=== PATIENT | female | born 1945 | race Caucasian/White ===

== ENCOUNTER 2019-04-18 00:49 | Emergency (ER) | payer BC, MEDICARE ==
[2019-04-18] MEDS ORDERED: Ketorolac 30 MG/ML SDV IM ONE (01:14)
--- NOTE | 2019-04-18 01:16 | EDM.PDOC ---
ED HPI GENERAL MEDICAL PROBLEM - General Chief Complaint: Chest Pain Stated Complaint: NECK AND UPPER SHOULDER PAIN Time Seen by Provider: 04/18/19 01:10 Source of Information: Reports: Patient, Family, RN Notes Reviewed History Limitations: Reports: No Limitations - History of Present Illness INITIAL COMMENTS - FREE TEXT/NARRATIVE: 74-year-old female presents emergency department today with complaint of pain middle of her back left side and left shoulder pain, she states she does have shortness of breath no diaphoresis no nausea vomiting no cardiac history, the pain started approximately 7 hours prior that has waxed and wane but it did awake her from sleep upper back Pain Score (Numeric/FACES): 7 - Related Data Allergies Allergy/AdvReac Type Severity Reaction Status Date / Time morphine Allergy Headache Verified 04/18/19 00:54 Home Meds: Home Meds Citalopram [Citalopram HBr] 20 mg PO DAILY 04/18/19 [History] Clopidogrel Bisulfate [Clopidogrel] 75 mg PO DAILY 04/18/19 [History] atorvaSTATin [Lipitor] 40 mg PO DAILY 04/18/19 [History] Past Medical History HEENT History: Reports: Hard of Hearing, Impaired Vision, Other (See Below) Other HEENT History: bilateral hearing aids Gastrointestinal History: Reports: Diverticulosis, Other (See Below) Other Gastrointestinal History: acidic foods upset stomach Genitourinary History: Reports: UTI, Recurrent [employer] History: Reports: Musculoskeletal History: Reports: Arthritis Neurological History: Reports: Other (See Below) Other Neuro History: transiet global amnesia Psychiatric History: Reports: Anxiety - Infectious Disease History Infectious Disease History: Reports: Chicken Pox, Measles Social & Family History - Tobacco Use Smoking Status *Q: Never Smoker - Caffeine Use Caffeine Use: Reports: Soda, Tea - Recreational Drug Use Recreational Drug Use: No ED ROS GENERAL - Review of Systems Review Of Systems: See Below Constitutional: Reports: No Symptoms HEENT: Reports: No Symptoms Respiratory: Reports: Shortness of Breath. Denies: Wheezing, Cough, Sputum Cardiovascular: Reports: Chest Pain. Denies: Dyspnea on Exertion, Palpitations GI/Abdominal: Reports: No Symptoms : Reports: No Symptoms Musculoskeletal: Reports: Shoulder Pain, Back Pain Skin: Reports: No Symptoms Neurological: Reports: No Symptoms ED EXAM, UPPER BACK/NECK PAIN - Physical Exam Exam: See Below Exam Limited By: No Limitations General Appearance: Alert, WD/WN, No Apparent Distress Cardiovascular/Respiratory: Regular Rate, Rhythm, No M/R/G, Normal Breath Sounds , No Respiratory Distress GI/Abdominal: Soft, Non-Tender Course - Vital Signs Last Recorded V/S: Last Vital Signs Temp 96.6 F 04/18/19 01:07 Pulse 54 L 04/18/19 01:07 Resp 15 04/18/19 01:07 BP 181/81 H 04/18/19 01:07 Pulse Ox 98 04/18/19 01:07 - Orders/Labs/Meds Orders: Active Orders 24 hr Category Date Time Status Cardiac Monitoring [RC] .As Directed Care 04/18/19 01:13 Active EKG Documentation Completion [RC] ASDIRECTED Care 04/18/19 01:14 Active EKG 12 Lead [EK] Stat Ther 04/18/19 01:14 Ordered Labs: Laboratory Tests 04/18/19 04/18/19 04/18/19 Range/Units 01:23 01:23 01:23 WBC 7.0 (4.5-11.0) K/uL RBC 3.84 (3.30-5.50) M/uL Hgb 12.1 (12.0-15.0) g/dL Hct 37.1 (36.0-48.0) % MCV 97 (80-98) fL MCH 32 H (27-31) pg MCHC 33 (32-36) % Plt Count 305 (150-400) K/uL Neut % (Auto) 52 (36-66) % Lymph % (Auto) 33 (24-44) % Imperial % (Auto) 13 H (2-6) % Eos % (Auto) 2 (2-4) % Baso % (Auto) 1 (0-1) % D-Dimer, Quantitative < 100 (0.0-400.0) ng/mL Sodium 141 (140-148) mmol/L Potassium 3.8 (3.6-5.2) mmol/L Chloride 105 (100-108) mmol/L Carbon Dioxide 28 (21-32) mmol/L Anion Gap 7.8 (5.0-14.0) mmol/L BUN 22 H (7-18) mg/dL Creatinine 1.1 H (0.6-1.0) mg/dL Est Cr Clr Drug Dosing 32.23 mL/min Estimated GFR (MDRD) 49 L (>60) Glucose 117 H (74-106) mg/dL Calcium 8.7 (8.5-10.1) mg/dL Total Bilirubin 0.3 (0.2-1.0) mg/dL AST 24 (15-37) U/L ALT 27 (12-78) U/L Alkaline Phosphatase 94 (46-116) U/L Troponin I < 0.017 (0.000-0.056) ng/mL Total Protein 7.0 (6.4-8.2) g/dL Albumin 3.6 (3.4-5.0) g/dL Globulin 3.4 (2.3-3.5) g/dL Albumin/Globulin Ratio 1.1 L (1.2-2.2) Lipase 194 (73-393) U/L Meds: Medications Discontinued Medications Generic Name Dose Route Start Last Admin Trade Name Freq PRN Reason Stop Dose Admin Ketorolac Tromethamine 30 mg 04/18/19 01:14 04/18/19 01:31 Toradol IM 04/18/19 01:15 30 mg ONETIME ONE Administration Departure - Departure Time of Disposition: 02:13 Disposition: Home, Self-Care 01 Condition: Fair Clinical Impression: Back pain Qualifiers: Back pain location: thoracic back pain Chronicity: acute Back pain laterality: left Qualified Code(s): M54.6 - Pain in thoracic spine - Discharge Information Instructions: Acute Back Pain, Adult Referrals: PCP,None [Primary Care Provider] - Forms: ED Department Discharge Additional Instructions: Continue to use nonsteroidal anti-inflammatories as needed for pain control, Please followup with your primary care provider in 3-5 days if not better, please call return to the emergency department with worsening of symptoms. - My Orders Last 24 Hours: My Active Orders 04/18/19 01:13 Cardiac Monitoring [RC] .As Directed 04/18/19 01:14 EKG Documentation Completion [RC] ASDIRECTED EKG 12 Lead [EK] Stat - Assessment/Plan Last 24 Hours: My Active Orders 04/18/19 01:13 Cardiac Monitoring [RC] .As Directed 04/18/19 01:14 EKG Documentation Completion [RC] ASDIRECTED EKG 12 Lead [EK] Stat Plan: Assessment Acuity = acute Site and laterality = back pain Etiology = possibly related to lifting injury Manifestations = none Location of injury = Home Lab values = CBC, CMP, troponin, d-dimer all within normal limits chest x-ray shows no acute process, EKG demonstrates normal sinus rhythm Plan She had some improvement with Toradol injection provided recommend continue nonsteroidal anti-inflammatories rest ice follow-up primary care 3-5 days if not better This note was dictated using [employer] voice recognition software please call with any questions on syntax or grammar.
--- NOTE | 2019-04-18 01:58 | CRLCR ---
INDICATION: Chest pain TECHNIQUE: Chest radiograph 2 views COMPARISON: None FINDINGS: Mediastinum: The mediastinum is normal in appearance. The heart silhouette is normal in size and morphology. Lung: Mild patchy airspace opacities are present in the medial left lung base. No sign of pleural effusion seen. No pneumothorax is identified. Bone and Soft tissue: Unremarkable for age. IMPRESSION: 1. Mild patchy airspace opacities are present in the medial left lung base. These findings can be seen with atelectasis and/or pneumonia. Dictated by Calin Hollis MD @ 04/18/2019 1:57:51 AM Dictated by: Calin Hollis MD @ 04/18/2019 01:57:55 (Electronically Signed)
== END 2019-04-18 02:21 | disposition home or self-care (01) ==
LOC: JP.ED 00:49
DX: M54.6 Pain in thoracic spine (principal); F41.9 Anxiety disorder, unspecified; Z88.5 Allergy status to narcotic agent; Z79.899 Other long term (current) drug therapy
CPT/HCPCS: 36415; 71046; 80053; 83690; 84484; 85025; 85379; 93005; 96372; 99285; J1885